=== PATIENT | female | born 1995 | race Caucasian/White ===

== ENCOUNTER 2024-03-08 12:24 | Emergency (ER) | payer MEDICAID ==
[~2024-03-08] VITALS: Ht 170.2 cm; Wt 47.6 kg
[~2024-03-08 12:24] MED LIST: AZIT250T13 PO; MOME17SP BNOSTRILS; ONDA4TAB11 PO; PRED20TA PO; SUMA50TA PO
[2024-03-08] MEDS ORDERED: METOCLOPRAMIDE HCL 10 MG/2 ML VIAL ONE (13:11)
[2024-03-08] MEDS ORDERED: diphenhydrAMINE 50 MG/1 ML VIAL ONE (13:11)
[2024-03-08] MEDS ORDERED: KETOROLAC TROMETHAMINE 30 MG INJ ONE (13:11)
[2024-03-08] MEDS: METOCLOPRAMIDE HCL 10 MG/2 ML VIAL IV ONE (13:17)
[2024-03-08] MEDS: IV NS 1000 ML 1,000 ML IV ONE (13:17)
[2024-03-08] MEDS: diphenhydrAMINE 50 MG/1 ML VIAL IV ONE (13:17)
[2024-03-08] MEDS: KETOROLAC TROMETHAMINE 30 MG INJ IVP ONE (13:18)
[2024-03-08 15:21] LABS: *BILIRUBIN,URIN NEGATIVE (NEGATIVE); *BLOOD, URINE NEGATIVE (NEGATIVE); *CLARITY,URINE CLEAR (CLEAR); *COLOR,URINE YELLOW (YELLOW); *KETONES,URINE 1+ (NEGATIVE); *PROTEIN,URINE NEGATIVE (NEGATIVE); *UROBILINOGEN,URINE 0.2 E.U./dl (NORMAL); LEUKOCYTE ESTERASE ,URINE NEGATIVE (NEGATIVE); NITRITE, URINE NEGATIVE (NEGATIVE); PH,URINE 5.5 (5.0-8.0); UGLUCOSE NEGATIVE (NEGATIVE)
[2024-03-08 15:23] LABS: *URINE HCG, QUAL NEGATIVE (NEGATIVE)
[2024-03-08 15:47] LABS: RBC,URINE NONE SEEN /HPF (0-3); WBC,URINE 0-3 /HPF (0-3)
[2024-03-08 15:48] LABS: BACTERIA,URINE FEW /HPF (NONE SEEN); SQUAMOUS EPITHELIAL CELL,UR MODERATE /HPF (NONE SEEN)
[2024-03-08] MEDS ORDERED: GUAI5SYR4 PO (15:58)
[2024-03-08 16:58] VITALS: BP 126/68; TEMP 98.2; O2SAT 98
== END 2024-03-08 16:59 | disposition home or self-care (01) ==
LOC: ER 12:24
DX: J06.9 Acute upper respiratory infection, unspecified (principal); G43.909 Migraine, unspecified, not intractable, without status migrainosus; R10.2 Pelvic and perineal pain; Z79.899 Other long term (current) drug therapy; Z88.0 Allergy status to penicillin
CPT/HCPCS: 99284; 96374; 96375; 96361; 81001; 84703; 86403; 87070; J1200; J1885; J2765; J7040; A4606; A4663